=== PATIENT | female | born 1950 | race African-American/Black ===

== ENCOUNTER 2019-01-06 08:42 | Inpatient (IN) | payer OTHER | END 2019-01-09 17:17 | disposition other institution (70) | LOC: YASAS 08:42 → Y6N 11:26 ==

== ENCOUNTER 2019-01-09 17:41 | Inpatient (IN) | payer OTHER ==
[2019-01-09] MEDS ORDERED: IBUPROFEN 400 MG TABLET (FP) PO PRN (21:58)
[2019-01-09] MEDS ORDERED: P-EPHED 60MG/TRIPROLIDI 2.5MG TABLET PO PRN (21:58)
[2019-01-09] MEDS ORDERED: MENTHOL/PHENOL 1 EACH UD MM PRN (21:58)
[2019-01-09] MEDS ORDERED: MAGNESIUM HYDROX 2400MG/30ML ORAL SUSPENSION 30 ML CUP PO PRN (21:58)
[2019-01-09] MEDS ORDERED: MAG HYDROX/AL HYDROX/SIMETH 30 ML UNIT-DOSE CUP PO PRN (21:58)
[2019-01-09] MEDS ORDERED: ACETAMINOPHEN 325 MG TABLET (FP) PO PRN (21:58)
[2019-01-09] MEDS ORDERED: MAGNESIUM CITRATE 300 ML BOTTLE PO PRN (21:58)
[2019-01-09] MEDS ORDERED: guaiFENesin 200 MG/10 ML 10 ML UNIT-DOSE CUPS PO PRN (21:58)
[2019-01-09] MEDS ORDERED: LOPERAMIDE HCL 2 MG CAPSULE PO PRN (21:58)
--- NOTE | 2019-01-09 22:02 | HP ---
CIWA Score - Admission Criteria OASAS Guidelines: Admission for Medically Managed Detox: Requires at least one of the followin. CIWA greater than 12 2. Seizures within the past 24 hours 3. Delirium tremens within the past 24 hours 4. Hallucinations within the past 24 hours 5. Acute intervention needed for co occurring medical disorder 6. Acute intervention needed for co occurring psychiatric disorder 7. Severe withdrawal that cannot be handled at a lower level of care (continued vomiting, continued diarrhea, abnormal vital signs) requiring intravenous medication and/or fluids 8. Admission ROS S - HPI Allergies/Adverse Reactions: Allergies Allergy/AdvReac Type Severity Reaction Status Date / Time No Known Allergies Allergy Verified 01/06/19 09:28 - Ebola screening Have you traveled outside of the country in the last 21 days: No (N) Have you had contact with anyone from an Ebola affected area: No Do you have a fever: No Patient History - Patient Medical History Hx Anemia: No Hx Asthma: No Hx Chronic Obstructive Pulmonary Disease (COPD): No Hx Cancer: No Hx Cardiac Disorders: Yes (STENT PLACEMENT IN 2018) Hx Congestive Heart Failure: No Hx Hypertension: Yes Hx Hypercholesterolemia: Yes (on md) Hx Pacemaker: No HX Cerebrovascular Accident: Yes (09/09 ambulation with cane) Hx Seizures: No Hx Dementia: No Hx Diabetes: Yes (ON METFORMIN) Hx Gastrointestinal Disorders: No Hx Liver Disease: No Hx Genitourinary Disorders: No Hx Sexually Transmitted Disorders: No Hx Renal Disease (ESRD): No Hx Thyroid Disease: No Hx Human Immunodeficiency Virus (HIV): No (10/10 last negcative) Hx Hepatitis C: No Hx Depression: No Hx Suicide Attempt: No Hx Bipolar Disorder: No Hx Schizophrenia: No - Patient Surgical History Past Surgical History: No Hx Neurologic Surgery: No Hx Cataract Extraction: No Hx Cardiac Surgery: Yes (angioplasty with stent 3 vessels in 07/10 at [facility]) Hx Lung Surgery: No Hx Breast Surgery: No Hx Breast Biopsy: No Hx Abdominal Surgery: No Hx Appendectomy: No Hx Cholecystectomy: No Hx Genitourinary Surgery: No Hx Section: No Hx Orthopedic Surgery: No Anesthesia Reaction: No - PPD History Previous Implant?: Yes Documented Results: Negative w/o proof Results: QFT 12/02/18neg - Reproductive History Patient : No - Smoking Cessation Smoking history: Former smoker Have you smoked in the past 12 months: Yes Aproximately how many cigarettes per day: 3 Cigars Per Day: 0 Hx Chewing Tobacco Use: No Initiated information on smoking cessation: Yes 'Breaking Loose' booklet given: 01/10/19 - Substances abused Heroin Substance route: Inhalation Frequency: Daily Amount used: 5 bags/daily Age of first use: 17 Date of last use: 01/04/19 Breathalyzer - Breathalyzer Breathalyzer: 0 Urine Drug Screen - Test Device Lot number: [id number] Expiration date: 09/21/20 - Control Is test valid?: Yes - Results Drug screen NEGATIVE: No Urine drug screen results: MOP-Opiates, OXY-Oxycodone, BUP-Suboxone Inpatient Rehab Admission - Rehab Decision to Admit Inpatient rehab admission?: Yes - Initial Determination Are CD services needed?: No Free of communicable disease: Yes Not in need of hospitalization: Yes - Rehab Admission Criteria Previous failed treatment: Yes Poor recovery environment: Yes Comorbidities: Yes Lacks judgement: No Patient is meeting Inpatient Rehab admission criteria:: Yes
[2019-01-09] MEDS: MELATONIN 5 MG TABLETS PO PRN (22:45)
[2019-01-09] MEDS: THIAMINE HCL 100 MG TABLET (FP) PO SCH (22:45)
[2019-01-09] MEDS ORDERED: PT OWN MED DRAWER 7, Y5N ONE (22:49)
--- NOTE | 2019-01-10 00:09 | HP ---
[facility] Rehab Assess/Revision - Admission History Ad[facility]hab [facility] - Findings Detox History & Physical reviewed: Yes Concur with findings: Yes Inpatient Rehab Admission - Rehab Decision to Admit Inpatient rehab admission?: Yes - Initial Determination Are CD services needed?: No Free of communicable disease: Yes Not in need of hospitalization: Yes - Rehab Admission Criteria Previous failed treatment: Yes Poor recovery environment: Yes Comorbidities: Yes Lacks judgement: No Patient is meeting Inpatient Rehab admission criteria:: Yes
[2019-01-10] MEDS ORDERED: guaiFENesin 200 MG/10 ML 10 ML UNIT-DOSE CUPS PO PRN (00:20)
[2019-01-10] MEDS ORDERED: ACETAMINOPHEN 325 MG TABLET (FP) PO PRN (00:20)
[2019-01-10] MEDS ORDERED: LOPERAMIDE HCL 2 MG CAPSULE PO PRN (00:20)
[2019-01-10] MEDS ORDERED: MENTHOL/PHENOL 1 EACH UD MM PRN (00:20)
[2019-01-10] MEDS ORDERED: MAG HYDROX/AL HYDROX/SIMETH 30 ML UNIT-DOSE CUP PO PRN (00:20)
[2019-01-10] MEDS ORDERED: MAGNESIUM CITRATE 300 ML BOTTLE PO PRN (00:20)
[2019-01-10] MEDS ORDERED: MAGNESIUM HYDROX 2400MG/30ML ORAL SUSPENSION 30 ML CUP PO PRN (00:20)
[2019-01-10] MEDS ORDERED: P-EPHED 60MG/TRIPROLIDI 2.5MG TABLET PO PRN (00:20)
[2019-01-10] MEDS: metFORMIN HCL 500 MG TABLET (FP) PO SCH ×2 (06:45→16:39)
[2019-01-10] MEDS: PRENATAL VITAMINS W/ FOLIC ACID TABLET (FP) PO SCH (09:04)
[2019-01-10] MEDS: CARVEDILOL 12.5 MG TABLET (FP) PO SCH (09:04)
[2019-01-10] MEDS: NIFEdipine E.R. 90 MG TABLET (FP) PO SCH (09:04)
[2019-01-10] MEDS ORDERED: PRENATAL VITAMINS W/ FOLIC ACID TABLET (FP) PO SCH (10:00)
[2019-01-10] MEDS: IBUPROFEN 400 MG TABLET (FP) PO PRN (11:13)
[2019-01-10] MEDS: THIAMINE HCL 100 MG TABLET (FP) PO SCH (21:26)
[2019-01-10] MEDS: MELATONIN 5 MG TABLETS PO PRN (21:26)
[2019-01-10] MEDS ORDERED: MELATONIN 5 MG TABLETS PO PRN (22:00)
[2019-01-10] MEDS ORDERED: THIAMINE HCL 100 MG TABLET (FP) PO SCH (22:00)
[2019-01-11] MEDS: metFORMIN HCL 500 MG TABLET (FP) PO SCH ×2 (07:22→17:30)
[2019-01-11] MEDS: CARVEDILOL 12.5 MG TABLET (FP) PO SCH (09:52)
[2019-01-11] MEDS: PRENATAL VITAMINS W/ FOLIC ACID TABLET (FP) PO SCH (09:52)
[2019-01-11] MEDS: IBUPROFEN 400 MG TABLET (FP) PO PRN (09:55)
[2019-01-11] MEDS: NIFEdipine E.R. 90 MG TABLET (FP) PO SCH (09:55)
--- NOTE | 2019-01-11 12:47 | PN ---
[facility] Progress Note Note: Patient seen for c/o low back pain due to chronic arthritis. Patient denies any recent injuries/falls and states Ibuprofen not helpful to relieve pain. Vital Signs Temperature 98.2 F 01/11/19 07:46 Pulse Rate 76 01/11/19 12:11 Respiratory Rate 18 01/11/19 07:46 Blood Pressure 132/80 01/11/19 12:11 O2 Sat by Pulse Oximetry (%) Laboratory Tests 01/10/19 01/11/19 16:38 07:21 POC Glucometer 122 95 PE alert and oriented x 3 skin warm and dry +perrla, eoms intact bl neck supple, no jvd ext full rom, no swelling ambulates with cane Labs 01/09/19 3.3 A/P: hypokalemia LBP/OA Will start Flexeril 5mg po tid prn continue Ibuprofen prn KCL 40 meq po x one repeat level in am
[2019-01-11] MEDS ORDERED: CYCLOBENZAPRINE HCL 5 MG TABLET PO PRN (12:48)
[2019-01-11] MEDS ORDERED: POTASSIUM CHLORIDE ORAL LIQUID 20 MEQ/15 ML PO ONE ×2 (14:00→16:30)
[2019-01-11] MEDS: THIAMINE HCL 100 MG TABLET (FP) PO SCH (21:50)
[2019-01-11] MEDS: MELATONIN 5 MG TABLETS PO PRN (21:50)
[2019-01-12] MEDS: metFORMIN HCL 500 MG TABLET (FP) PO SCH ×3 (06:43→16:45)
[2019-01-12] MEDS: CARVEDILOL 12.5 MG TABLET (FP) PO SCH (09:22)
[2019-01-12] MEDS: PRENATAL VITAMINS W/ FOLIC ACID TABLET (FP) PO SCH (09:22)
[2019-01-12] MEDS: NIFEdipine E.R. 90 MG TABLET (FP) PO SCH (09:25)
[2019-01-12] MEDS ORDERED: PT OWN MED DRAWER 7, Y5N ONE (09:25)
[2019-01-12] MEDS: IBUPROFEN 400 MG TABLET (FP) PO PRN ×2 (15:21→21:17)
[2019-01-12] MEDS: THIAMINE HCL 100 MG TABLET (FP) PO SCH (21:16)
[2019-01-12] MEDS: MELATONIN 5 MG TABLETS PO PRN (21:16)
[2019-01-13] MEDS: metFORMIN HCL 500 MG TABLET (FP) PO SCH ×2 (06:57→17:01)
[2019-01-13] MEDS: IBUPROFEN 400 MG TABLET (FP) PO PRN (06:58)
[2019-01-13 07:27] VITALS: TEMP 98.2
[2019-01-13] MEDS: CARVEDILOL 12.5 MG TABLET (FP) PO SCH (10:18)
[2019-01-13] MEDS: PRENATAL VITAMINS W/ FOLIC ACID TABLET (FP) PO SCH (10:18)
[2019-01-13] MEDS: NIFEdipine E.R. 90 MG TABLET (FP) PO SCH (10:19)
[2019-01-13] MEDS: THIAMINE HCL 100 MG TABLET (FP) PO SCH (22:25)
[2019-01-13] MEDS ORDERED: cloNIDine HCL 0.1 MG TABLET PO ONE (23:38)
--- NOTE | 2019-01-13 23:43 | PN ---
[facility] Progress Note Note: Patient's blod pressure is B/p 164/90. Paient is asymptomatic but concerned about her Vital Signs Temperature 98.2 F 01/13/19 23:13 Pulse Rate 91 H 01/13/19 23:13 Respiratory Rate 20 01/13/19 23:13 Blood Pressure 164/90 01/13/19 23:13 O2 Sat by Pulse Oximetry (%) Action: Clonidine 0.1mg tablet oral ordered
[2019-01-14] MEDS: metFORMIN HCL 500 MG TABLET (FP) PO SCH ×2 (06:45→17:44)
[2019-01-14] MEDS: CARVEDILOL 12.5 MG TABLET (FP) PO SCH (09:20)
[2019-01-14] MEDS: PRENATAL VITAMINS W/ FOLIC ACID TABLET (FP) PO SCH (09:20)
[2019-01-14] MEDS: NIFEdipine E.R. 90 MG TABLET (FP) PO SCH (09:20)
--- NOTE | 2019-01-14 11:52 | PN ---
[facility] Progress Note Note: Patient requested to have BGM once daily instead of BID. However, patient is on Metformin 500mg AC BID. Explained to patient she will need to continue with BGM bid. Will repeat K+ level in am. Laboratory Tests 01/10/19 01/11/19 01/12/19 16:38 07:21 06:41 Potassium POC Glucometer 122 95 95 01/12/19 01/12/19 01/13/19 09:30 16:38 06:57 Potassium 3.4 L POC Glucometer 133 87 Vital Signs Period Temp Pulse Resp BP Sys/Elias Pulse Ox Last 24 Hr 98.2 F-98.2 F 83-91 16-20 158-164/85-90
[2019-01-14] MEDS ORDERED: metFORMIN HCL 500 MG TABLET (FP) PO SCH (19:30)
--- NOTE | 2019-01-14 19:33 | PN ---
[facility] Progress Note Note: Refusing BGM and metformin. Labs reviewd. BGM range 87-133. Will d/c BGM. Patient encouraged compliance w/ metformin and diet.
[2019-01-14] MEDS: MELATONIN 5 MG TABLETS PO PRN (21:20)
[2019-01-14] MEDS: THIAMINE HCL 100 MG TABLET (FP) PO SCH (21:20)
[2019-01-15 07:17] VITALS: BP 157/83; PULSE 96
--- NOTE | 2019-01-15 09:29 | DS ---
[facility] Rehab Discharge Summary - [facility] Rehab Discharge Summary Admission Date: 01/09/19 Discharge Date: 01/15/19 - History Present History: Opioid dependence Pertinent Past History: this 68 year old female with heroin dependence previous rehab 12/04/18 to 12/11/18 history of hypertension and type 2 dm denied seizure denied syncope longest period of sobriety 4 months history of cad with heart stent 3 vessels in 07/10 at [facility] low back pain chronic - Discharge Physical Exam Vital Signs: Vital Signs Temperature 98.2 F 01/15/19 07:16 Pulse Rate 96 H 01/15/19 07:16 Respiratory Rate 18 01/15/19 07:16 Blood Pressure 157/83 01/15/19 07:16 O2 Sat by Pulse Oximetry (%) Pertinent Admission Physical Exam Findings: - Physical General Appearance: No apparent distress HEENTM: KISHORE, Normocephalic Respiratory: Lungs Clear Neck: Supple, Trachea in good position Cardiology: S1, S2 regular Abdominal: + Bowel Sounds, Non Tender, Flat, Soft Back: patient unable to stand straight, s Musculoskeletal: limited trunk range of Motion, gait unsteady requiring cane, difficulty maintaining upright position and bearing full body weight Neurological: Yes: reiki practitioner II-XII NML intact, Alert, Motor Strength 5/5 Integumentary: Consistent throughout trunk and extremity - Treatment Discharge Condition: Discharge condition good (patient is medically stable for discharge. She has refused referrals to aftercare and states she and her spouse will attend NA meetings.) Hospital Course: patient was adherent to treatment plan and medication regimen. Attended groups and had 1:1 meetings with her counselor. No urgent medical problems that prevent discharge at this time. - Medication Discharge Medications: Ambulatory Orders Amlodipine Besylate [Norvasc -] 10 mg PO DAILY #7 tablet 01/15/19 Carvedilol 1 tab PO DAILY #14 tablet 01/15/19 Clonidine HCl 0.3 mg PO BID #30 tablet 01/15/19 Metformin HCl [Glucophage] 500 mg PO BID #30 tablet 01/15/19 Nifedipine ER [Procardia XL -] 90 mg PO DAILY #14 tab.er.24 01/15/19 - Medication-Assisted Treatment (MAT) Medication-Assisted Treatment (MAT): No - Discharge Instructions Diet, activity, other medical instructions: Diet: as tolerated Activity: as tolerated Other medical instructions: Please seek aftercare for substance abuse disorder and obtain primary care. - Diagnosis (1) Opioid dependence Status: Chronic Qualifiers: Substance use status: uncomplicated Qualified Code(s): F11.20 - Opioid dependence, uncomplicated - Follow-up Referral Minutes to complete discharge: 20 - AMA Did Patient Leave Against Medical Advice: No
== END 2019-01-15 09:37 | disposition home or self-care (01) | DRG 772 ==
LOC: YASAS 17:41 → Y3E 17:42
PROVIDERS: ADMIT Neuromusculoskeletal Medicine & OMM; ATTEND Neuromusculoskeletal Medicine & OMM
PROC: HZ42ZZZ Group Counseling for Substance Abuse Treatment, Cognitive-Behavioral (ICD-10-PCS; principal; 2019-01-09)
DX: F11.20 Opioid dependence, uncomplicated (principal); I10 Essential (primary) hypertension; E11.9 Type 2 diabetes mellitus without complications; E87.6 Hypokalemia; M54.5 Low back pain; G89.29 Other chronic pain; M19.90 Unspecified osteoarthritis, unspecified site; Z86.73 Personal history of transient ischemic attack (TIA), and cerebral infarction without residual deficits; Z95.5 Presence of coronary angioplasty implant and graft; Z79.4 Long term (current) use of insulin; Z87.891 Personal history of nicotine dependence
CPT/HCPCS: 36415; 82962; 84132; J0735

== ENCOUNTER 2019-02-05 09:54 | Inpatient (IN) | payer OTHER ==
[2019-02-05 10:45] VITALS: BMI 23.8
--- NOTE | 2019-02-05 12:30 | HP ---
COWS - Scale Resting Pulse: 1= AK 81-100 Sweatin= No chills or Flushing Restless Observation: 0= Sits Still Pupil Size: 0= Normal to Room Light Bone or Joint Aches: 0= None Runny Nose/ Eye Tearin= None GI Upset > 30mins: 0= None Tremor Observation: 0= None Yawning Observation: 0= None Anxiety or Irritability: 0= None Goose Flesh Skin: 0=Smooth Skin COWS Score: 1 CIWA Score - Admission Criteria OASAS Guidelines: Admission for Medically Managed Detox: Requires at least one of the followin. CIWA greater than 12 2. Seizures within the past 24 hours 3. Delirium tremens within the past 24 hours 4. Hallucinations within the past 24 hours 5. Acute intervention needed for co occurring medical disorder 6. Acute intervention needed for co occurring psychiatric disorder 7. Severe withdrawal that cannot be handled at a lower level of care (continued vomiting, continued diarrhea, abnormal vital signs) requiring intravenous medication and/or fluids 8. Admitting History and Physical - Smoking History Smoking history: Former smoker Have you smoked in the past 12 months: Yes Aproximately how many cigarettes per day: 3 - Alcohol/Substance Use Hx Alcohol Use: No Admission ROS S - HPI Chief Complaint: "heroin detox" Allergies/Adverse Reactions: Allergies Allergy/AdvReac Type Severity Reaction Status Date / Time No Known Allergies Allergy Verified 02/05/19 10:30 History of Present Illness: 68 year old female with a past medical history of hypertension, CAD s/p 3 stents ([facility] 07/10) and type 2 diabetes mellitus presents for detox from heroin. Recently in rehab, left 01/15. started using again 1 week after. Relapsed from stress. 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 Have you traveled outside of the country in the last 21 days: No Have you had contact with anyone from an Ebola affected area: No - Review of Systems Constitutional: No Symptoms Reported EENT: reports: No Symptoms Reported Respiratory: reports: No Symptoms reported Cardiac: reports: No Symptoms Reported GI: reports: No Symptoms Reported : reports: No Symptoms Reported Musculoskeletal: reports: Back Pain Integumentary: reports: No Symptoms Reported Neuro: reports: Headache Endocrine: reports: No Symptoms Reported Hematology: reports: No Symptoms Reported Psychiatric: reports: Judgement Intact, Mood/Affect Appropiate, Orientated x3, Depressed Patient History - Patient Medical History Hx Anemia: No Hx Asthma: No Hx Chronic Obstructive Pulmonary Disease (COPD): No Hx Cancer: No Hx Cardiac Disorders: Yes (STENT PLACEMENT IN 2019) Hx Congestive Heart Failure: No Hx Hypertension: Yes Hx Hypercholesterolemia: Yes (on md) Hx Pacemaker: No HX Cerebrovascular Accident: Yes (09/09 ambulation with cane) Hx Seizures: No Hx Dementia: No Hx Diabetes: Yes (ON METFORMIN) Hx Gastrointestinal Disorders: No Hx Liver Disease: No Hx Genitourinary Disorders: No Hx Sexually Transmitted Disorders: No Hx Renal Disease (ESRD): No Hx Thyroid Disease: No Hx Human Immunodeficiency Virus (HIV): No (10/10 last negcative) Hx Hepatitis C: No Hx Depression: No Hx Suicide Attempt: No Hx Bipolar Disorder: No Hx Schizophrenia: No - Patient Surgical History Past Surgical History: No Hx Neurologic Surgery: No Hx Cataract Extraction: No Hx Cardiac Surgery: Yes (angioplasty with stent 3 vessels in 07/10 at [facility]) Hx Lung Surgery: No Hx Breast Surgery: No Hx Breast Biopsy: No Hx Abdominal Surgery: No Hx Appendectomy: No Hx Cholecystectomy: No Hx Genitourinary Surgery: No Hx Section: No Hx Orthopedic Surgery: No Anesthesia Reaction: No - PPD History Results: QFT 12/02/18neg - Smoking Cessation Smoking history: Former smoker Have you smoked in the past 12 months: Yes Aproximately how many cigarettes per day: 3 Cigars Per Day: 0 Hx Chewing Tobacco Use: No Initiated information on smoking cessation: No 'Breaking Loose' booklet given: 02/05/19 - Substances abused Heroin Substance route: Inhalation Frequency: Daily Amount used: 5 bags/daily Age of first use: 17 Date of last use: 02/05/19 Admission Physical Exam [facility] - Vital Signs Vital Signs: Vital Signs - 24 hr 02/05/19 10:32 Temperature 97.1 F L Pulse Rate 87 Respiratory 17 Rate Blood Pressure 225/111 H - Physical General Appearance: Yes: Within Normal Limits, No Apparent Distress HEENTM: Yes: Hearing grossly Normal, Normal ENT Inspection, Normocephalic, Pharynx Normal Respiratory: Yes: Chest Non-Tender, Lungs Clear, Normal Breath Sounds Neck: Yes: No masses,lesions,Nodules Breast: Yes: Within Normal Limits Cardiology: Yes: Regular Rhythm, Regular Rate Abdominal: Yes: Normal Bowel Sounds, Non Tender, Flat, Soft Genitourinary: Yes: Within Normal Limits Extremities: Yes: Normal Capillary Refill, Normal Inspection Neurological: Yes: internal communications writer II-XII NML intact, Fully Oriented, Alert, Motor Strength 5/5, Normal Mood/Affect Integumentary: Yes: Normal Color, Dry, Warm Lymphatic: Yes: Within Normal Limits Breathalyzer - Breathalyzer Breathalyzer: 0 Urine Drug Screen - Test Device Lot number: [id number] Expiration date: 09/21/20 - Control Is test valid?: Yes - Results Drug screen NEGATIVE: No Urine drug screen results: MOP-Opiates Inpatient Rehab Admission - Rehab Decision to Admit Inpatient rehab admission?: Yes - Initial Determination Are CD services needed?: Yes Free of communicable disease: Yes Not in need of hospitalization: Yes - Rehab Admission Criteria Previous failed treatment: Yes Poor recovery environment: Yes Comorbidities: Yes Lacks judgement: Yes Patient is meeting Inpatient Rehab admission criteria:: Yes
[2019-02-05] MEDS ORDERED: IBUPROFEN 400 MG TABLET (FP) PO PRN (13:13)
[2019-02-05] MEDS ORDERED: MAG HYDROX/AL HYDROX/SIMETH 30 ML UNIT-DOSE CUP PO PRN (13:13)
[2019-02-05] MEDS ORDERED: MAGNESIUM CITRATE 300 ML BOTTLE PO PRN (13:13)
[2019-02-05] MEDS ORDERED: P-EPHED 60MG/TRIPROLIDI 2.5MG TABLET PO PRN (13:13)
[2019-02-05] MEDS ORDERED: guaiFENesin 200 MG/10 ML 10 ML UNIT-DOSE CUPS PO PRN (13:13)
[2019-02-05] MEDS ORDERED: MAGNESIUM HYDROX 2400MG/30ML ORAL SUSPENSION 30 ML CUP PO PRN (13:13)
[2019-02-05] MEDS ORDERED: MENTHOL/PHENOL 1 EACH UD MM PRN (13:13)
[2019-02-05] MEDS ORDERED: LOPERAMIDE HCL 2 MG CAPSULE PO PRN (13:13)
--- NOTE | 2019-02-05 14:02 | PN ---
Teaching Attending Note Name of Resident: Joseph Chi ATTENDING PHYSICIAN STATEMENT I saw and evaluated the patient. I reviewed the resident's note and discussed the case with the resident. I agree with the resident's findings and plan as documented. SUBJECTIVE: 68 year old female here for heroin use , reports 3 bags of heroin per day via inhalation , latest use 2 days ago and yesterday, denies OD , never had a seizure . D/C from rehab at this facility 01/15 , relapsed 1 week after d/c and reports using heroin 2 x/week . PMHX : hypertension, CAD s/p 3 stents @ [facility] 06/2018 , type 2 diabetes mellitus, admits to non- compliance w/ meds , pharamcy called , meds not picked up since October , latest Plavix Rx May 2018 . Chronic back pain , per pt planning surgical intervention denies ETOH use . tobacco : 3 cigs/day Allergies: none Family History: diabetes . Living Situation: lives in own apartment with boyfriend, adult children Work: retired, home health aide . OBJECTIVE: wnwd , ambulating w/ cane , + scoliosis , increased lumbar lordosis , no vertebral tenderness to palpation / percussion . edentulous Vital Signs - 24 hr 02/05/19 10:32 Temperature 97.1 F L Pulse Rate 87 Respiratory 17 Rate Blood Pressure 225/111 H ASSESSMENT AND PLAN: Opioid use , episodic / Hypertension non-compliant w/ meds - rehab .
[2019-02-05] MEDS: CARVEDILOL 12.5 MG TABLET (FP) PO SCH (15:01)
[2019-02-05] MEDS: ASPIRIN 81 MG CHEWABLE TABLETS PO SCH (15:01)
[2019-02-05] MEDS: NIFEdipine E.R. 90 MG TABLET (FP) PO SCH (15:01)
[2019-02-05] MEDS: metFORMIN HCL 500 MG TABLET (FP) PO SCH ×2 (15:01→17:00)
[2019-02-05] MEDS: INSULIN SLIDING SCALE (NOVOLOG) 1 VIAL SQ SCH ×2 (16:55→22:16)
[2019-02-05] MEDS: THIAMINE HCL 100 MG TABLET (FP) PO SCH (21:26)
[2019-02-05] MEDS: ATORVASTATIN CA 80 MG TABLET (FP) PO SCH (21:26)
[2019-02-05] MEDS ORDERED: MELATONIN 5 MG TABLETS PO PRN (22:00)
[2019-02-06] MEDS: metFORMIN HCL 500 MG TABLET (FP) PO SCH ×2 (06:49→16:48)
[2019-02-06] MEDS: INSULIN SLIDING SCALE (NOVOLOG) 1 VIAL SQ SCH ×2 (06:49→16:49)
[2019-02-06] MEDS: PRENATAL VITAMINS W/ FOLIC ACID TABLET (FP) PO SCH (10:00)
[2019-02-06] MEDS: NIFEdipine E.R. 90 MG TABLET (FP) PO SCH (10:00)
[2019-02-06] MEDS: CARVEDILOL 12.5 MG TABLET (FP) PO SCH (10:01)
[2019-02-06] MEDS: ASPIRIN 81 MG CHEWABLE TABLETS PO SCH (10:01)
[2019-02-06 12:02] LABS: HEMATOCRIT 37.7 % (32.4-45.2); HEMOGLOBIN 13.2 GM/dL (10.7-15.3); MCH 33.2 pg (25.7-33.7); MEAN CELL VOLUME 94.8 fl (80-96); MEAN PLT VOLUME 8.4 fl (7.5-11.1); PLATELET COUNT 303 K/MM3 (134-434); RBC 3.97 M/mm3 (3.60-5.2); RDW 12.3 % (11.6-15.6); WHITE BLOOD COUNT 6.1 K/mm3 (4.0-10.0)
[2019-02-06 12:17] LABS: ALBUMIN 3.6 g/dl (3.4-5.0); BILIRUBIN,TOTAL 1.1 mg/dL (0.2-1); BLOOD UREA NITROGEN 9.3 mg/dL (7-18); CALCIUM 8.8 mg/dL (8.5-10.1); CREATININE 0.8 mg/dL (0.55-1.3); TOT PROT 7.3 g/dl (6.4-8.2)
[2019-02-06 12:30] LABS: POTASSIUM 2.7 mmol/L (3.5-5.1)
[2019-02-06] MEDS ORDERED: POTASSIUM CHLORIDE TABS 20 MEQ TABLET.ER (FP) PO ONE (12:46)
--- NOTE | 2019-02-06 12:54 | PN ---
[facility] Progress Note Note: Vital Signs - 24 hr 02/05/19 02/06/19 02/06/19 14:37 00:30 03:30 Temperature 97.5 F L Pulse Rate 82 Respiratory 19 18 18 Rate Blood Pressure 171/98 H 02/06/19 02/06/19 07:12 09:30 Temperature 98.5 F Pulse Rate 99 H 108 H Respiratory 18 Rate Blood Pressure 148/68 149/81 Laboratory Tests 02/05/19 02/05/19 02/06/19 13:54 16:56 06:48 WBC RBC Hgb Hct MCV MCH MCHC RDW Plt Count MPV Sodium Potassium Chloride Carbon Dioxide Anion Gap BUN Creatinine Est GFR (CKD-EPI)AfAm Est GFR (CKD-EPI)NonAf POC Glucometer 106 164 141 Random Glucose Calcium Total Bilirubin AST ALT Alkaline Phosphatase Total Protein Albumin 02/06/19 02/06/19 09:00 09:00 WBC 6.1 RBC 3.97 Hgb 13.2 Hct 37.7 MCV 94.8 MCH 33.2 MCHC 35.0 RDW 12.3 Plt Count 303 D MPV 8.4 Sodium 139 Potassium 2.7 L* Chloride 101 Carbon Dioxide 29 Anion Gap 9 BUN 9.3 Creatinine 0.8 Est GFR (CKD-EPI)AfAm 86.57 Est GFR (CKD-EPI)NonAf 74.70 POC Glucometer Random Glucose 183 H Calcium 8.8 Total Bilirubin 1.1 H AST 15 ALT 16 Alkaline Phosphatase 95 Total Protein 7.3 Albumin 3.6 Labs noted A/P Hypokalemia Kdur 20 MEQ po now then bid Repeat K+ on 02/09/19
[2019-02-06] MEDS: ATORVASTATIN CA 80 MG TABLET (FP) PO SCH (21:22)
[2019-02-06] MEDS: THIAMINE HCL 100 MG TABLET (FP) PO SCH (21:22)
[2019-02-06] MEDS: POTASSIUM CHLORIDE TABS 20 MEQ TABLET.ER (FP) PO SCH (21:22)
[2019-02-07] MEDS: INSULIN SLIDING SCALE (NOVOLOG) 1 VIAL SQ SCH ×2 (07:43→18:21)
[2019-02-07] MEDS: metFORMIN HCL 500 MG TABLET (FP) PO SCH ×2 (07:43→18:20)
[2019-02-07] MEDS: POTASSIUM CHLORIDE TABS 20 MEQ TABLET.ER (FP) PO SCH ×2 (09:10→21:15)
[2019-02-07] MEDS: ASPIRIN 81 MG CHEWABLE TABLETS PO SCH (09:10)
[2019-02-07] MEDS: NIFEdipine E.R. 90 MG TABLET (FP) PO SCH (09:10)
[2019-02-07] MEDS: PRENATAL VITAMINS W/ FOLIC ACID TABLET (FP) PO SCH (09:10)
[2019-02-07] MEDS: CARVEDILOL 12.5 MG TABLET (FP) PO SCH (09:10)
[2019-02-07] MEDS: THIAMINE HCL 100 MG TABLET (FP) PO SCH (21:14)
[2019-02-07] MEDS: ATORVASTATIN CA 80 MG TABLET (FP) PO SCH (21:15)
[2019-02-08] MEDS: metFORMIN HCL 500 MG TABLET (FP) PO SCH ×2 (07:07→17:50)
[2019-02-08] MEDS ORDERED: PT OWN MED DRAWER 7, Y5N ONE (07:53)
[2019-02-08] MEDS ORDERED: INSULIN (NOVOLOG) ASPART 100 UNITS/ML 10ML VIAL ONE (07:53)
[2019-02-08] MEDS: INSULIN SLIDING SCALE (NOVOLOG) 1 VIAL SQ SCH ×2 (07:54→17:40)
[2019-02-08] MEDS: CARVEDILOL 12.5 MG TABLET (FP) PO SCH (09:16)
[2019-02-08] MEDS: POTASSIUM CHLORIDE TABS 20 MEQ TABLET.ER (FP) PO SCH ×2 (09:16→21:08)
[2019-02-08] MEDS: PRENATAL VITAMINS W/ FOLIC ACID TABLET (FP) PO SCH (09:16)
[2019-02-08] MEDS: ASPIRIN 81 MG CHEWABLE TABLETS PO SCH (09:16)
[2019-02-08] MEDS: NIFEdipine E.R. 90 MG TABLET (FP) PO SCH (09:16)
[2019-02-08] MEDS: ACETAMINOPHEN 325 MG TABLET (FP) PO PRN (09:18)
[2019-02-08] MEDS ORDERED: LISINOPRIL 20 MG TABLET (FP) PO ONE (12:20)
--- NOTE | 2019-02-08 12:25 | PN ---
[facility] Progress Note Note: Patient seen for elevated blood pressure. Has hx of old mI x 3, HTN and DM. Patient denies chest pain, sob and dizziness at time of visit. Laboratory Tests 02/05/19 02/05/19 02/06/19 13:54 16:56 06:48 WBC RBC Hgb Hct MCV MCH MCHC RDW Plt Count MPV Sodium Potassium Chloride Carbon Dioxide Anion Gap BUN Creatinine Est GFR (CKD-EPI)AfAm Est GFR (CKD-EPI)NonAf POC Glucometer 106 164 141 Random Glucose Calcium Total Bilirubin AST ALT Alkaline Phosphatase Total Protein Albumin RPR Titer 02/06/19 02/06/19 02/06/19 09:00 09:00 09:00 WBC 6.1 RBC 3.97 Hgb 13.2 Hct 37.7 MCV 94.8 MCH 33.2 MCHC 35.0 RDW 12.3 Plt Count 303 D MPV 8.4 Sodium 139 Potassium 2.7 L* Chloride 101 Carbon Dioxide 29 Anion Gap 9 BUN 9.3 Creatinine 0.8 Est GFR (CKD-EPI)AfAm 86.57 Est GFR (CKD-EPI)NonAf 74.70 POC Glucometer Random Glucose 183 H Calcium 8.8 Total Bilirubin 1.1 H AST 15 ALT 16 Alkaline Phosphatase 95 Total Protein 7.3 Albumin 3.6 RPR Titer Nonreactive 02/06/19 02/07/19 02/08/19 16:46 07:42 07:08 WBC RBC Hgb Hct MCV MCH MCHC RDW Plt Count MPV Sodium Potassium Chloride Carbon Dioxide Anion Gap BUN Creatinine Est GFR (CKD-EPI)AfAm Est GFR (CKD-EPI)NonAf POC Glucometer 143 163 155 Random Glucose Calcium Total Bilirubin AST ALT Alkaline Phosphatase Total Protein Albumin RPR Titer Vital Signs Period Temp Pulse Resp BP Sys/Elias Pulse Ox Last 24 Hr 98.2 F 80-112 18-18 171-182/76-104 PE: alert and oriented x 3 skin warm and dry neck supple, no jvd Car s1s2, rrr, no murmurs or jvd resp cta bl, no wheezes or rales ext full rom, no edema, amb ad raegan A/P: HTN-uncontrolled Will give lisinopril 20mg now then to start daily in am SHY diet monitor clinically
[2019-02-08] MEDS ORDERED: CYCLOBENZAPRINE HCL 10 MG TABLET (FP) PO PRN (12:30)
[2019-02-08] MEDS ORDERED: CYCLOBENZAPRINE HCL 10 MG TABLET (FP) PO ONE (13:00)
[2019-02-08] MEDS: CYCLOBENZAPRINE HCL 5 MG TABLET PO PRN ×2 (13:25→21:08)
[2019-02-08] MEDS: THIAMINE HCL 100 MG TABLET (FP) PO SCH (21:08)
[2019-02-08] MEDS: ATORVASTATIN CA 80 MG TABLET (FP) PO SCH (21:08)
[2019-02-09] MEDS: INSULIN SLIDING SCALE (NOVOLOG) 1 VIAL SQ SCH ×2 (06:47→17:10)
[2019-02-09] MEDS: metFORMIN HCL 500 MG TABLET (FP) PO SCH ×2 (06:47→17:40)
[2019-02-09] MEDS: CARVEDILOL 12.5 MG TABLET (FP) PO SCH (09:13)
[2019-02-09] MEDS: POTASSIUM CHLORIDE TABS 20 MEQ TABLET.ER (FP) PO SCH ×2 (09:13→22:15)
[2019-02-09] MEDS: LISINOPRIL 20 MG TABLET (FP) PO SCH (09:13)
[2019-02-09] MEDS: NIFEdipine E.R. 90 MG TABLET (FP) PO SCH (09:13)
[2019-02-09] MEDS: PRENATAL VITAMINS W/ FOLIC ACID TABLET (FP) PO SCH (09:13)
[2019-02-09] MEDS: ASPIRIN 81 MG CHEWABLE TABLETS PO SCH (09:13)
[2019-02-09 18:47] LABS: EPI CELLS 6.2 /HPF (0-5/HPF); HYALINE CASTS 37 /lpf (0-8); URINE APPEARANCE CLOUDY; URINE BACTERIA 18.6 /hpf (NEGATIVE); URINE BILIRUBIN NEGATIVE (NEGATIVE); URINE COLOR DK YELLOW; URINE GLUCOSE (UA) NEGATIVE (NEGATIVE); URINE KETONE NEGATIVE (NEGATIVE); URINE LEUK ESTERASE 1+ (NEGATIVE); URINE NITRITE NEGATIVE (NEGATIVE); URINE PROTEIN 1+ (NEGATIVE); URINE WBC 7 /hpf (0-5)
[2019-02-09] MEDS: ATORVASTATIN CA 80 MG TABLET (FP) PO SCH (22:15)
[2019-02-09] MEDS: THIAMINE HCL 100 MG TABLET (FP) PO SCH (22:16)
[2019-02-10] MEDS: INSULIN SLIDING SCALE (NOVOLOG) 1 VIAL SQ SCH ×2 (08:09→17:39)
[2019-02-10] MEDS: metFORMIN HCL 500 MG TABLET (FP) PO SCH ×2 (08:09→17:39)
[2019-02-10] MEDS: ACETAMINOPHEN 325 MG TABLET (FP) PO PRN (09:08)
[2019-02-10] MEDS: PRENATAL VITAMINS W/ FOLIC ACID TABLET (FP) PO SCH (09:08)
[2019-02-10] MEDS: POTASSIUM CHLORIDE TABS 20 MEQ TABLET.ER (FP) PO SCH ×2 (09:08→21:55)
[2019-02-10] MEDS: ASPIRIN 81 MG CHEWABLE TABLETS PO SCH (09:08)
[2019-02-10] MEDS: NIFEdipine E.R. 90 MG TABLET (FP) PO SCH (09:08)
[2019-02-10] MEDS: CARVEDILOL 12.5 MG TABLET (FP) PO SCH (09:09)
[2019-02-10] MEDS: LISINOPRIL 20 MG TABLET (FP) PO SCH (09:10)
[2019-02-10] MEDS: THIAMINE HCL 100 MG TABLET (FP) PO SCH (21:55)
[2019-02-10] MEDS: ATORVASTATIN CA 80 MG TABLET (FP) PO SCH (21:55)
[2019-02-11] MEDS: INSULIN SLIDING SCALE (NOVOLOG) 1 VIAL SQ SCH (06:31)
[2019-02-11] MEDS: metFORMIN HCL 500 MG TABLET (FP) PO SCH (06:31)
[2019-02-11 07:09] VITALS: BP 121/84; PULSE 89; TEMP 98.7
--- NOTE | 2019-02-11 09:16 | DS ---
[facility] Rehab Discharge Summary - [facility] Rehab Discharge Summary Admission Date: 02/05/19 Discharge Date: 02/11/19 - History Present History: Opioid dependence Additional Comments: Pt is a 68 y/o female admitted to rehab for opiod use disorder, well known to this facility with multiple admissions of which she was last discharged here on 01/15/19 and requested early discharge today. Pt was seen by her counselor who reports pt has refused aftercare referral and wants to follow up on her own with her significant other. This seem to be a regular pattern for patient as reviewed in past discharge notes. Pt is unable to tell staff who her primary care providers are or where she goes for primary care considering her comorbid conditions. Pt has been encouraged and instructed to connect with a primary care site at her location of chosen residence after discharge. Pertinent Past History: HTN T2DM Chronic LBP CAD w/ 3 vessel stents in 07/10 at [place], [place] - Discharge Physical Exam Vital Signs: Vital Signs Temperature 98.7 F 02/11/19 07:06 Pulse Rate 89 02/11/19 07:06 Respiratory Rate 18 02/11/19 07:06 Blood Pressure 121/84 02/11/19 07:06 O2 Sat by Pulse Oximetry (%) Alert o x 3;denies s/h/i. nad; oob with unsteady gait and uses cane/difficulty with maintaining upright position/bearing full body weight. Cardiac:s1 s2, rrr lungs:cta,phuong. abdomen:soft,+bs,soft,nt,nd Musculoskeletal:chronic limited rom trunk/back but able to sit up on command from lying position with no difficulty or help. Extremities/skin:No edema,skin intact. Pertinent Admission Physical Exam Findings: Laboratory Tests 02/05/19 02/05/19 02/06/19 13:54 16:56 06:48 WBC RBC Hgb Hct MCV MCH MCHC RDW Plt Count MPV Sodium Potassium Chloride Carbon Dioxide Anion Gap BUN Creatinine Est GFR (CKD-EPI)AfAm Est GFR (CKD-EPI)NonAf POC Glucometer 106 164 141 Random Glucose Calcium Total Bilirubin AST ALT Alkaline Phosphatase Total Protein Albumin Urine Color Urine Appearance Urine pH Ur Specific [place] Urine Protein Urine Glucose (UA) Urine Ketones Urine Blood Urine Nitrite Urine Bilirubin Urine Urobilinogen Ur Leukocyte Esterase Urine WBC (Auto) Urine Casts (Auto) U Epithel Cells (Auto) U Sm Round Cell (Auto) Urine Bacteria (Auto) Urine Yeast (Auto) RPR Titer 02/06/19 02/06/19 02/06/19 09:00 09:00 09:00 WBC 6.1 RBC 3.97 Hgb 13.2 Hct 37.7 MCV 94.8 MCH 33.2 MCHC 35.0 RDW 12.3 Plt Count 303 D MPV 8.4 Sodium 139 Potassium 2.7 L* Chloride 101 Carbon Dioxide 29 Anion Gap 9 BUN 9.3 Creatinine 0.8 Est GFR (CKD-EPI)AfAm 86.57 Est GFR (CKD-EPI)NonAf 74.70 POC Glucometer Random Glucose 183 H Calcium 8.8 Total Bilirubin 1.1 H AST 15 ALT 16 Alkaline Phosphatase 95 Total Protein 7.3 Albumin 3.6 Urine Color Urine Appearance Urine pH Ur Specific [place] Urine Protein Urine Glucose (UA) Urine Ketones Urine Blood Urine Nitrite Urine Bilirubin Urine Urobilinogen Ur Leukocyte Esterase Urine WBC (Auto) Urine Casts (Auto) U Epithel Cells (Auto) U Sm Round Cell (Auto) Urine Bacteria (Auto) Urine Yeast (Auto) RPR Titer Nonreactive 02/06/19 02/07/19 02/08/19 16:46 07:42 07:08 WBC RBC Hgb Hct MCV MCH MCHC RDW Plt Count MPV Sodium Potassium Chloride Carbon Dioxide Anion Gap BUN Creatinine Est GFR (CKD-EPI)AfAm Est GFR (CKD-EPI)NonAf POC Glucometer 143 163 155 Random Glucose Calcium Total Bilirubin AST ALT Alkaline Phosphatase Total Protein Albumin Urine Color Urine Appearance Urine pH Ur Specific [place] Urine Protein Urine Glucose (UA) Urine Ketones Urine Blood Urine Nitrite Urine Bilirubin Urine Urobilinogen Ur Leukocyte Esterase Urine WBC (Auto) Urine Casts (Auto) U Epithel Cells (Auto) U Sm Round Cell (Auto) Urine Bacteria (Auto) Urine Yeast (Auto) RPR Titer 02/09/19 02/09/19 02/09/19 06:46 08:00 16:30 WBC RBC Hgb Hct MCV MCH MCHC RDW Plt Count MPV Sodium Potassium 3.2 L Chloride Carbon Dioxide Anion Gap BUN Creatinine Est GFR (CKD-EPI)AfAm Est GFR (CKD-EPI)NonAf POC Glucometer 161 Random Glucose Calcium Total Bilirubin AST ALT Alkaline Phosphatase Total Protein Albumin Urine Color Dk yellow Urine Appearance Cloudy Urine pH 6.0 Ur Specific [place] 1.026 Urine Protein 1+ H Urine Glucose (UA) Negative Urine Ketones Negative Urine Blood Trace Urine Nitrite Negative Urine Bilirubin Negative Urine Urobilinogen 1.0 Ur Leukocyte Esterase 1+ H Urine WBC (Auto) 7 Urine Casts (Auto) 37 U Epithel Cells (Auto) 6.2 U Sm Round Cell (Auto) None Urine Bacteria (Auto) 18.6 Urine Yeast (Auto) None RPR Titer 02/09/19 02/10/19 02/11/19 16:43 07:40 06:30 WBC RBC Hgb Hct MCV MCH MCHC RDW Plt Count MPV Sodium Potassium Chloride Carbon Dioxide Anion Gap BUN Creatinine Est GFR (CKD-EPI)AfAm Est GFR (CKD-EPI)NonAf POC Glucometer 136 111 119 Random Glucose Calcium Total Bilirubin AST ALT Alkaline Phosphatase Total Protein Albumin Urine Color Urine Appearance Urine pH Ur Specific [place] Urine Protein Urine Glucose (UA) Urine Ketones Urine Blood Urine Nitrite Urine Bilirubin Urine Urobilinogen Ur Leukocyte Esterase Urine WBC (Auto) Urine Casts (Auto) U Epithel Cells (Auto) U Sm Round Cell (Auto) Urine Bacteria (Auto) Urine Yeast (Auto) RPR Titer 02/11/19 09:00 WBC RBC Hgb Hct MCV MCH MCHC RDW Plt Count MPV Sodium 139 Potassium 3.5 Chloride 102 Carbon Dioxide 27 Anion Gap 9 BUN 24.5 H Creatinine 0.9 Est GFR (CKD-EPI)AfAm 75.08 Est GFR (CKD-EPI)NonAf 64.78 POC Glucometer Random Glucose 136 H Calcium 9.2 Total Bilirubin AST ALT Alkaline Phosphatase Total Protein Albumin Urine Color Urine Appearance Urine pH Ur Specific [place] Urine Protein Urine Glucose (UA) Urine Ketones Urine Blood Urine Nitrite Urine Bilirubin Urine Urobilinogen Ur Leukocyte Esterase Urine WBC (Auto) Urine Casts (Auto) U Epithel Cells (Auto) U Sm Round Cell (Auto) Urine Bacteria (Auto) Urine Yeast (Auto) RPR Titer All labs in d/c package and pt instructed to take to medical management appointment. - Treatment Discharge Condition: Discharge condition good Hospital Course: Rehab stay was safe but pt was mostly in her room and refused to go to groups this admission(see counselor's notes) Refused CD aftercare referral - Medication Discharge Medications: Ambulatory Orders Clonidine HCl 0.1 mg PO BID 02/05/19 Atorvastatin Ca [Lipitor] 80 mg PO HS #14 tablet 02/11/19 Carvedilol 1 tab PO DAILY #14 tablet 02/11/19 Metformin HCl [Glucophage] 500 mg PO BID #30 tablet 02/11/19 Nifedipine ER [Procardia XL -] 90 mg PO DAILY #14 tab.er.24 02/11/19 - Medication-Assisted Treatment (MAT) Medication-Assisted Treatment (MAT): No - Discharge Instructions Diet, activity, other medical instructions: Diet:SHY,low cholesterol diet Activity: oob ad raegan with a cane Other medical instructions:Follow up with CD aftercare as recommended. follow up with primary care with [facility] clinic within 1 week after discharge. - Diagnosis (1) DM2 (diabetes mellitus, type 2) Status: Chronic Qualifiers: Diabetes mellitus residential insulin use: unspecified residential insulin use status Diabetes mellitus complication status: with other specified complication Qualified Code(s): E11.69 - Type 2 diabetes mellitus with other specified complication (2) H/O heart artery stent Status: Chronic (3) Hypertension Status: Chronic Qualifiers: Hypertension type: essential hypertension Qualified Code(s): I10 - Essential (primary) hypertension (4) Low back pain Status: Chronic Qualifiers: Chronicity: chronic Back pain laterality: unspecified (5) Old cerebrovascular accident (CVA) without late effect Status: Chronic (6) Opioid dependence Status: Chronic Qualifiers: Substance use status: uncomplicated Qualified Code(s): F11.20 - Opioid dependence, uncomplicated (7) Use of cane as ambulatory aid Status: Chronic (8) Weight loss Status: Chronic - Follow-up Referral Minutes to complete discharge: 25 - AMA Did Patient Leave Against Medical Advice: No Additional Comments: Courtesy Rx as above electronically sent to pt's [facility] pharmacy to product picker after discharge. Pt is medically stable to be discharged as requested and follow up routinely for primary care.
[2019-02-11 12:24] LABS: BLOOD UREA NITROGEN 24.5 mg/dL (7-18); CALCIUM 9.2 mg/dL (8.5-10.1); CREATININE 0.9 mg/dL (0.55-1.3); POTASSIUM 3.5 mmol/L (3.5-5.1)
== END 2019-02-11 10:08 | disposition home or self-care (01) | DRG 772 ==
LOC: YASAS 09:54 → Y3E 14:02
PROVIDERS: ADMIT Neuromusculoskeletal Medicine & OMM; ATTEND Neuromusculoskeletal Medicine & OMM
PROC: HZ42ZZZ Group Counseling for Substance Abuse Treatment, Cognitive-Behavioral (ICD-10-PCS; principal; 2019-02-05)
DX: F11.20 Opioid dependence, uncomplicated (principal); F17.210 Nicotine dependence, cigarettes, uncomplicated; I25.10 Atherosclerotic heart disease of native coronary artery without angina pectoris; I10 Essential (primary) hypertension; Z95.5 Presence of coronary angioplasty implant and graft; E87.6 Hypokalemia; E11.9 Type 2 diabetes mellitus without complications; Z79.84 Long term (current) use of oral hypoglycemic drugs; E78.00 Pure hypercholesterolemia, unspecified; M19.90 Unspecified osteoarthritis, unspecified site; Z86.73 Personal history of transient ischemic attack (TIA), and cerebral infarction without residual deficits; Z99.89 Dependence on other enabling machines and devices
CPT/HCPCS: 36415; 80048; 80053; 81003; 82962; 84132; 85027; 86593